=== PATIENT | male | born 1990 | race Caucasian/White ===

== ENCOUNTER → 2024-07-18 10:13 | Outpatient (REF) | payer BC, SELFPAY | LOC: RAD 10:13 | PROVIDERS: ATTENDING PHYSICIAN Otolaryngology; FAMILY PHYSICIAN Family Medicine | DX: J32.0 Chronic maxillary sinusitis (principal) | CPT/HCPCS: 70486 ==

== ENCOUNTER 2024-09-23 05:58 | Day surgery (SDC) | payer BC, SELFPAY ==
[2024-09-23] VITALS (7 sets, daily range): BP systolic 129–137; BP diastolic 68–90; BMI 29.7
[2024-09-23] MEDS: TYLENOL 1000 MG PO (06:41)
[2024-09-23] MEDS: NORMOSOL-R/PLASMALYTE-A 1000 IV (06:42)
== END 2024-09-23 10:15 | disposition home or self-care (01) ==
LOC: SDS 05:58
PROVIDERS: ATTENDING PHYSICIAN Otolaryngology
DX: J34.2 Deviated nasal septum (principal); J34.3 Hypertrophy of nasal turbinates
CPT/HCPCS: 30140; 30520